=== PATIENT | male | born 1970 | race Caucasian/White ===

== ENCOUNTER → 2018-06-28 15:31 | Outpatient (CLI) | payer BC, SELFPAY ==
--- NOTE | 2018-06-28 15:33 | DI.RAD.S_ITS ---
PROCEDURE: XR CHEST 2V INDICATIONS: cough hemoptysis TECHNIQUE: 2 views of the chest were acquired. COMPARISON: [facility], , CHEST 1 VIEW, 09/26/2010, 9:46. FINDINGS: Surgical changes and devices: None. Lungs and pleura: No pleural effusions or pneumothorax. Lungs are clear. Mediastinum: Mediastinal contours are normal. Heart size is normal. Bones and chest wall: No suspicious bony abnormalities. Soft tissues appear unremarkable. IMPRESSION: No acute cardiopulmonary pathology. Dictated by: Devonte Eisenberg M.D. on 06/28/2018 at 16:03 Approved by: Devonte Eisenberg M.D. on 06/28/2018 at 16:04
== END ==
PROVIDERS: Family Provider Family Medicine; PCP Family Medicine; Visit Provider Internal Medicine
DX: R04.2 Hemoptysis (principal)
CPT/HCPCS: 71046

== ENCOUNTER → 2018-12-06 09:50 | Outpatient (CLI) | payer BC, SELFPAY ==
[2018-12-06 10:26] LABS: Add Manual Diff / Slide Review NO; Basophils Absolute Auto 0 /uL (0-100); Basophils Percent Auto 0.5 % (0-2); Eosinophils Absolute Auto 0 /uL (0-450); Eosinophils Percent Auto 0.7 % (2-4); Hematocrit 45.5 % (41-53); Hemoglobin 15.8 g/dL (13.5-17.5); Lymphocytes Absolute Auto 1400 /uL (1100-4500); Lymphocytes Percent Auto 25.6 % (25-40); Mean Corpuscular HGB Conc 34.7 % (30-36); Mean Corpuscular Hemoglobin 31.8 PG (26-34); Mean Corpuscular Volume 91.6 fL (80-100); Monocytes Absolute Auto 600 /uL (0-900); Monocytes Percent Auto 10.9 % (3-14); Neutrophils Absolute Auto 3300 /uL (1500-7000); Neutrophils Percent Auto 62.3 % (50-75); Platelet Count 284 X10^3/uL (150-400); Red Blood Cell Count 4.96 X10^6/uL (4.5-5.9); Red Cell Distribution Width 12.4 % (11.6-14.8); White Blood Cell Count 5.3 X10^3/uL (4.5-11.0)
[2018-12-06 10:42] LABS: Alanine Aminotransferase 59 IU/L (21-72); Albumin Globulin Ratio 1.8 (1.0-2.8); Alkaline Phosphatase 41 U/L (38-126); Aspartate Aminotransferase 49 IU/L (17-59); BUN Creatinine Ratio 17.8 (6-22); Bilirubin Total 1.1 mg/dL (0.2-1.3); Blood Urea Nitrogen 16 mg/dL (9-20); Calcium 10.1 mg/dL (8.4-10.2); Carbon Dioxide 27 mmol/L (22-32); Chloride 102 mmol/L (98-107); Cholesterol 186 mg/dL (140-199); Estimated Glomerular Filt Rate > 60.0 mL/min (>60); Globulin 2.8 g/dL (1.7-4.1); Glucose 90 mg/dL (70-100); HDL Cholesterol 52 mg/dL (40-60); HEMOLYSIS < 15 (0-50); LDL Cholesterol Calculated 113 mg/dL (<100); Potassium 4.7 mmol/L (3.4-5.1); Sodium 138 mmol/L (137-145); Total Protein 7.8 g/dL (6.3-8.2); Triglycerides 106 mg/dL (35-150)
[2018-12-06 11:19] LABS: TSH w/ Reflex to FT4 1.54 uIU/mL (0.47-4.68)
[2018-12-06 16:42] LABS: Creatinine Urine Random 39.8 mg/dL
[2018-12-06 16:57] LABS: Microalbumin Urine Random < 0.6 mg/dL (0-1.6)
== END ==
PROVIDERS: Family Provider Family Medicine; PCP Family Medicine; Visit Provider Family Medicine
DX: E66.3 Overweight (principal); E78.1 Pure hyperglyceridemia; E78.5 Hyperlipidemia, unspecified; I10 Essential (primary) hypertension; R74.0 Nonspecific elevation of levels of transaminase and lactic acid dehydrogenase [LDH]; Z12.5 Encounter for screening for malignant neoplasm of prostate
CPT/HCPCS: 36415; 80053; 80061; 82043; 82570; 84443; 85025; G0103

== ENCOUNTER → 2018-12-15 09:01 | Outpatient (CLI) | payer BC, SELFPAY ==
--- NOTE | 2018-12-15 09:02 | DI.US.S_ITS ---
PROCEDURE: US ABDOMEN LIMITED INDICATIONS: POSSIBLE VENTRAL HERNIA TECHNIQUE: Real-time focused scanning was performed of the abdomen, with image documentation. COMPARISON: [facility], US, ABDOMEN COMPLETE, 12/19/2011, 8:05. FINDINGS: Limited sonographic images of the anterior abdominal wall at the area of concern demonstrates no visualized hernia. IMPRESSION: No visualized hernia. If clinical concern persists, CT is recommended. Dictated by: Denise Collier M.D. on 12/15/2018 at 13:41 Approved by: Denise Collier M.D. on 12/15/2018 at 13:42
== END ==
PROVIDERS: Family Provider Family Medicine; PCP Family Medicine; Visit Provider Family Medicine
DX: K43.9 Ventral hernia without obstruction or gangrene (principal)
CPT/HCPCS: 76705

== ENCOUNTER → 2022-11-30 09:55 | Outpatient (CLI) | payer BC, OTHER, SELFPAY ==
--- NOTE | 2022-11-30 09:57 | DI.RAD.S_ITS ---
PROCEDURE: XR CHEST 2V INDICATIONS: Cough TECHNIQUE: 2 views of the chest were acquired. COMPARISON: [facility], CR, XR CHEST 2V, 06/28/2018, 15:15. FINDINGS: Surgical changes and devices: None. Lungs and pleura: Lungs are clear. No pleural effusions or pneumothorax. Mediastinum: Mediastinal contours are normal. Heart size is normal. Bones and chest wall: No suspicious bony abnormalities. Soft tissues appear unremarkable. IMPRESSION: No acute cardiopulmonary pathology. Dictated by: Devonte Eisenberg M.D. on 11/30/2022 at 10:50 Approved by: Devonte Eisenberg M.D. on 11/30/2022 at 10:50
== END ==
PROVIDERS: Family Provider Family Medicine; PCP Family Medicine; Referring Provider Nurse Practitioner Family; Visit Provider Nurse Practitioner Family
DX: R05.9 Cough, unspecified (principal)
CPT/HCPCS: 71046

== ENCOUNTER → 2023-06-15 07:46 | Outpatient (CLI) | payer BC, OTHER, SELFPAY ==
[2023-06-15 09:10] LABS: Add Manual Diff / Slide Review NO; Basophils Absolute Auto 0 /uL (0-100); Basophils Percent Auto 0.7 % (0-2); Eosinophils Absolute Auto 100 /uL (0-450); Eosinophils Percent Auto 1.7 % (2-4); Hematocrit 44.6 % (41-53); Hemoglobin 15.9 g/dL (13.5-17.5); Lymphocytes Absolute Auto 2000 /uL (1100-4500); Mean Corpuscular HGB Conc 35.6 % (30-36); Mean Corpuscular Hemoglobin 33.2 PG (26-34); Mean Corpuscular Volume 93.2 fL (80-100); Monocytes Absolute Auto 600 /uL (0-900); Monocytes Percent Auto 9.4 % (3-14); Neutrophils Absolute Auto 3700 /uL (1500-7000); Neutrophils Percent Auto 57.2 % (50-75); Platelet Count 230 X10^3/uL (150-400); Red Blood Cell Count 4.78 X10^6/uL (4.5-5.9); Red Cell Distribution Width 12.4 % (11.6-14.8); White Blood Cell Count 6.5 X10^3/uL (4.5-11.0)
[2023-06-15 09:22] LABS: Hemoglobin A1C% w Est Avg Glu 4.9 % (4.0-6.0)
[2023-06-15 09:40] LABS: Alanine Aminotransferase 175 IU/L (<50); Albumin 4.5 g/dL (3.5-5.0); Albumin Globulin Ratio 1.5 (1.0-2.8); Alkaline Phosphatase 53 U/L (38-126); Aspartate Aminotransferase 111 IU/L (17-59); BUN Creatinine Ratio 16.1 (6-22); Bilirubin Total 0.9 mg/dL (0.2-1.3); Blood Urea Nitrogen 14 mg/dL (9-20); Calcium 9.3 mg/dL (8.4-10.2); Carbon Dioxide 23 mmol/L (22-32); Chloride 104 mmol/L (98-107); Cholesterol 248 mg/dL (140-199); Estimated Glomerular Filt Rate > 60 mL/min (>60); Globulin 3.1 g/dL (1.7-4.1); Glucose 91 mg/dL (70-100); HDL Cholesterol 48 mg/dL (40-60); HEMOLYSIS < 15 (0-50); LDL Cholesterol Calculated 135 mg/dL (<100); Sodium 136 mmol/L (137-145); Total Protein 7.6 g/dL (6.3-8.2); Triglycerides 323 mg/dL (35-150)
[2023-06-15 10:33] LABS: TSH w/ Reflex to FT4 3.03 uIU/mL (0.47-4.68)
== END ==
PROVIDERS: Family Provider Family Medicine; PCP Pediatrics; Referring Provider Family Medicine; Visit Provider Family Medicine
DX: E66.3 Overweight (principal); E78.1 Pure hyperglyceridemia; E78.2 Mixed hyperlipidemia; I10 Essential (primary) hypertension; Z80.42 Family history of malignant neoplasm of prostate; Z83.3 Family history of diabetes mellitus; Z12.5 Encounter for screening for malignant neoplasm of prostate
CPT/HCPCS: 80053; 80061; 83036; 84443; 85025; G0103

== ENCOUNTER → 2023-06-27 10:02 | Outpatient (CLI) | payer BC, OTHER, SELFPAY ==
[2023-06-27 11:49] LABS: Alanine Aminotransferase 181 IU/L (<50); Albumin 4.6 g/dL (3.5-5.0); Albumin Globulin Ratio 1.7 (1.0-2.8); Alkaline Phosphatase 46 U/L (38-126); Aspartate Aminotransferase 131 IU/L (17-59); BUN Creatinine Ratio 18.4 (6-22); Bilirubin Total 0.8 mg/dL (0.2-1.3); Blood Urea Nitrogen 16 mg/dL (9-20); Calcium 9.7 mg/dL (8.4-10.2); Carbon Dioxide 24 mmol/L (22-32); Chloride 104 mmol/L (98-107); Estimated Glomerular Filt Rate > 60 mL/min (>60); Globulin 2.7 g/dL (1.7-4.1); Glucose 85 mg/dL (70-100); HEMOLYSIS < 15 (0-50); Potassium 4.7 mmol/L (3.4-5.1); Sodium 137 mmol/L (137-145); Total Protein 7.3 g/dL (6.3-8.2)
[2023-06-27 12:00] LABS: LDL Cholesterol Direct 112 mg/dL (<100)
== END ==
PROVIDERS: Family Provider Family Medicine; PCP Pediatrics; Referring Provider Pediatrics; Visit Provider Pediatrics
DX: E78.1 Pure hyperglyceridemia (principal); E78.2 Mixed hyperlipidemia; I10 Essential (primary) hypertension
CPT/HCPCS: 36415; 80053; 83721

== ENCOUNTER 2023-07-02 07:17 | Day surgery (SDC) | payer BC, OTHER, SELFPAY ==
[2023-07-02 07:48] VITALS: BP 132/82; PULSE 64; RESP 14; TEMP 36.5; O2SAT 94; BMI 31.0
[2023-07-02] MEDS: LACTATED RINGERS 1,000 ML 42 ML IV (08:19)
--- NOTE | 2023-07-02 08:57 | PM.HP.1 ---
History of Present Illness History of Present Illness Date Patient Seen: 07/02/23 Time Patient Seen: 08:57 Chief complaint: Colonoscopy Narrative: Zac is a 53-year-old man who is here for a colonoscopy. He has never had a colonoscopy before. He denies hematochezia or melena. He denies a family history of colon cancer. [facility] Medical History (Updated 07/02/23 @ 08:58 by Sawyer Rodarte MD) Elevated alanine aminotransferase (ALT) level (08/14/17) Elevated LFTs Hypertension Kidney stones FRANCIS (obstructive sleep apnea) Surgical History Status post appendectomy Family History Father Hypertension Prostate cancer Grandfather Diabetes mellitus Mother Sleep apnea Social History household members: spouse Smoking Status: Former smoker alcohol intake: current Meds Home Medications and Allergies Home Medications Medication Instructions Recorded Confirmed Type coenzyme Q10 100 mg capsule (Co 100 mg PO 1XD ##0 08/14/17 07/02/23 History Q-10) nystatin 100,000 unit/gram topical 1 applic topical BID #30 grams 02/03/22 07/02/23 Rx cream sildenafil 50 mg tablet 25 mg PO DAILY PRN sexual activity 02/05/22 07/02/23 Rx #45 tabs multivitamin 1 tab PO DAILY 07/28/22 07/02/23 History omega 1-ctm-hft-fish oil 1,000 mg 1 cap PO BID 07/28/22 07/02/23 History (120 mg-180 mg) capsule (Fish Oil) simvastatin 10 mg tablet See Rx Instructions .Route 05/26/23 07/02/23 Rx .COMPLEX #90 tabs lisinopril 5 mg tablet 5 mg PO DAILY #90 tabs 06/08/23 07/02/23 Rx metoprolol succinate 25 mg 25 mg PO DAILY #90 tabs 06/08/23 07/02/23 Rx tablet,extended release 24 hr epinephrine 0.3 mg/0.3 mL 0.3 ml IM ONCE PRN Anaphylaxis 07/02/23 07/02/23 History injection, auto-injector (EpiPen 2-Castro) Allergies Allergy/AdvReac Type Severity Reaction Status Date / Time bee venom protein (honey bee) Allergy Severe Hives Verified 04/10/23 10:40 bupropion [From WELLBUTRIN] AdvReac Mild WEIRD Verified 07/02/23 07:43 DREAMS Exam Vital Signs (past 8 hours): - 07/02/23 07:48 Temperature 97.7 F Pulse Rate 64 Respiratory Rate 14 Blood Pressure 132/82 Pulse Oximetry 94 Oxygen Delivery Method Room Air Oxygen Delivery Method Room Air Const General: No acute distress Assessment & Plan Assessment and plan (1) Colon cancer screening: Status: Acute Plan We reviewed the risks and benefits of colonoscopy for cancer screening and he would like to proceed.
[2023-07-02 09:26] VITALS: BP 111/71; PULSE 87; RESP 16; TEMP 36.2; O2SAT 97
--- NOTE | 2023-07-02 09:27 | PM.OP.COLON ---
Operative Date/Time/Diagnoses Date of procedure: 07/02/23 Time of procedure: 09:27 Pre-op diagnosis: Colon cancer screening Post-op diagnosis: same Procedure & Clinicians Study performed: Colonoscopy Same procedure as scheduled: Yes Surgeon: Sawyer Rodarte Procedure Notes Procedure in detail: Surgeon: Sawyer Rodarte MD Anesthesia: Evy Roldan CRNA Procedure: The patient was brought to the endoscopy suite, placed in left lateral decubitus position. The patient was connected to monitoring devices. A time-out was performed. Sedation was administered. Once the patient was adequately sedated, a digital rectal exam was performed and was normal. The scope was then inserted and advanced to the cecum where the appendiceal orifice was identified and photographed. The scope was then slowly withdrawn over greater than 6 minutes. The mucosa was thoroughly inspected. No abnormalities were seen. The scope was retroflexed in the rectum. The scope was straightened and removed. The patient was awakened and brought to recovery. Scope withdrawal time: 8 minutes Sedation time: 14 minutes EBL: 0 Findings: Normal colon Post-procedure Recommendations: Colonoscopy in 10 years Disposition: PACU
[2023-07-02 09:31] VITALS: BP 126/83; PULSE 73; RESP 16; O2SAT 94
[2023-07-02 09:37] VITALS: BP 137/96; PULSE 66; RESP 12; TEMP 36.2; O2SAT 97
[2023-07-02 09:40] VITALS: BP 143/97; PULSE 67; RESP 16; O2SAT 97
== END 2023-07-02 09:52 | disposition home or self-care (01) ==
PROVIDERS: Family Provider Family Medicine; PCP Pediatrics; Referring Provider Surgery; Visit Provider Surgery
PROC: 0DJD8ZZ Inspection of Lower Intestinal Tract, Via Natural or Artificial Opening Endoscopic (ICD-10-PCS; CPT 45378; principal; 2023-07-02 08:45)
DX: Z12.11 Encounter for screening for malignant neoplasm of colon (principal)
CPT/HCPCS: 45378; J2704

== ENCOUNTER → 2023-07-11 09:11 | Outpatient (CLI) | payer BC, OTHER, SELFPAY ==
[2023-07-11 09:44] LABS: Alanine Aminotransferase 112 IU/L (<50); Albumin 4.6 g/dL (3.5-5.0); Albumin Globulin Ratio 1.6 (1.0-2.8); Alkaline Phosphatase 36 U/L (38-126); Aspartate Aminotransferase 70 IU/L (17-59); BUN Creatinine Ratio 13.3 (6-22); Bilirubin Total 0.9 mg/dL (0.2-1.3); Blood Urea Nitrogen 12 mg/dL (9-20); Calcium 9.7 mg/dL (8.4-10.2); Carbon Dioxide 27 mmol/L (22-32); Chloride 104 mmol/L (98-107); Estimated Glomerular Filt Rate > 60 mL/min (>60); Globulin 2.9 g/dL (1.7-4.1); Glucose 94 mg/dL (70-100); Potassium 4.3 mmol/L (3.4-5.1); Sodium 136 mmol/L (137-145); Total Protein 7.5 g/dL (6.3-8.2)
[2023-07-11 09:45] LABS: HEMOLYSIS 51 (0-50)
[2023-07-13 20:17] LABS: HBsAg Screen Negative (Negative); Hepatitis A Antibody IgM Negative (Negative); Hepatitis B Core Antibody IgM Negative (Negative); Hepatitis C Antibody Non Reactive (Non Reactive)
== END ==
PROVIDERS: Family Provider Family Medicine; PCP Pediatrics; Referring Provider Pediatrics; Visit Provider Pediatrics
DX: R79.89 Other specified abnormal findings of blood chemistry (principal)
CPT/HCPCS: 36415; 80053; 80074

== ENCOUNTER → 2023-10-16 15:46 | Outpatient (CLI) | payer BC, OTHER, SELFPAY ==
--- NOTE | 2023-10-16 | DI.US.S_ITS ---
PROCEDURE: US ABDOMEN LIMITED INDICATIONS: Elevated liver function tests, hypertension, hyperlipidemia TECHNIQUE: Real-time scanning was performed of the abdominal and retroperitoneal organs, with image documentation. COMPARISON: None. FINDINGS: Liver: Normal size. Increased in echogenicity. Main portal vein demonstrates hepatopetal flow. Main portal vein measures 1.1 cm. Decreased sonographic penetration. Gallbladder: Nondilated. Tiny gallstones. Normal gallbladder wall thickness. No pericholecystic fluid. Negative sonographic Bell's sign. Biliary ducts: Intrahepatic bile ducts are non-dilated. CHD 0.6 cm. Within normal limits. CBD is not well seen. Pancreas: Not well seen due to overlying bowel gas. IMPRESSION: Decreased sonographic penetration of the liver. Technically difficult exam. 1. Increased hepatic echogenicity most consistent with hepatic steatosis. Other forms of hepatocellular disease could have similar appearance. 2. No acute cholecystitis. Small gallstones. Dictated by: Andres Mendoza M.D. on 10/16/2023 at 18:00 Approved by: Andres Mendoza M.D. on 10/16/2023 at 18:03
== END ==
PROVIDERS: Family Provider Family Medicine; PCP Family Medicine; Referring Provider Family Medicine; Visit Provider Family Medicine
DX: K76.0 Fatty (change of) liver, not elsewhere classified (principal); K80.20 Calculus of gallbladder without cholecystitis without obstruction; R79.89 Other specified abnormal findings of blood chemistry; I10 Essential (primary) hypertension; E78.5 Hyperlipidemia, unspecified; E78.1 Pure hyperglyceridemia
CPT/HCPCS: 76705

== ENCOUNTER → 2025-04-08 08:56 | Outpatient (CLI) | payer BC, OTHER, SELFPAY ==
[2025-04-08 09:33] LABS: Alanine Aminotransferase 31 IU/L (<50); Albumin 4.6 g/dL (3.5-5.0); Albumin Globulin Ratio 1.8 (1.0-2.8); Alkaline Phosphatase 43 U/L (38-126); Aspartate Aminotransferase 34 IU/L (17-59); BUN Creatinine Ratio 13.8 (6-22); Bilirubin Total 1.1 mg/dL (0.2-1.3); Blood Urea Nitrogen 15 mg/dL (9-20); Carbon Dioxide 27 mmol/L (22-32); Chloride 104 mmol/L (98-107); Cholesterol 149 mg/dL (140-199); Estimated Glomerular Filt Rate > 60 mL/min (>60); Globulin 2.5 g/dL (1.7-4.1); Glucose 92 mg/dL (70-99); HDL Cholesterol 68 mg/dL (40-60); HEMOLYSIS < 15 (0-50); LDL Cholesterol Calculated 63 mg/dL (<100); Potassium 4.6 mmol/L (3.4-5.1); Sodium 136 mmol/L (137-145); Total Protein 7.1 g/dL (6.3-8.2); Triglycerides 88 mg/dL (35-150)
[2025-04-08 10:04] LABS: Prostate Specific Antigen Scrn 0.751 ng/mL (0.1-4.0)
[2025-04-09 08:10] LABS: CRP, High Sensitivity 0.89 mg/L (0.00-3.00)
== END ==
PROVIDERS: PCP Family Medicine; Referring Provider Family Medicine; Visit Provider Family Medicine
DX: R79.89 Other specified abnormal findings of blood chemistry (principal); I10 Essential (primary) hypertension; E78.2 Mixed hyperlipidemia; Z12.5 Encounter for screening for malignant neoplasm of prostate
CPT/HCPCS: 36415; 80053; 80061; 86140; G0103

== ENCOUNTER → 2025-05-17 09:35 | Outpatient (CLI) | payer BC, OTHER, SELFPAY ==
--- NOTE | 2025-05-17 09:37 | DI.RAD.S_ITS ---
PROCEDURE: XR WRIST LT MIN 3V INDICATIONS: Please evaluate for fracture evaluate for arthritic changes TECHNIQUE: 4 views of the wrist were acquired. COMPARISON: None. FINDINGS: Bones: No acute fractures or dislocations. No navicular fractures are seen. Several remote, unfused fracture fragments can be seen distal to the ulnar styloid. No suspicious bony lesions. Degenerative changes are seen throughout, which are most prominent involving the 1st carpometacarpal joint. Milder degenerative changes are seen elsewhere. Soft tissues: No suspicious soft tissue calcifications. IMPRESSION: Negative for acute fracture by plain film. Underlying posttraumatic and degenerative changes are seen. Dictated by: Alan Griggs M.D. on 05/17/2025 at 9:15 Approved by: Alan Griggs M.D. on 05/17/2025 at 9:16
[2025-05-17 10:26] LABS: Uric Acid 5.3 mg/dL (3.5-8.5)
== END ==
LOC: RAD 09:37
PROVIDERS: PCP Family Medicine; Referring Provider Chiropractor; Visit Provider Chiropractor
DX: M19.032 Primary osteoarthritis, left wrist (principal)
CPT/HCPCS: 36415; 73110; 84550